=== PATIENT | male | born 2000 | race African-American/Black ===

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

== ENCOUNTER 2023-11-02 20:22 | Emergency (ER) | payer BC, OTHER | END 2023-11-02 21:00 | disposition home or self-care (01) | LOC: ERS 20:22 | DX: R51.9 Headache, unspecified (principal) | CPT/HCPCS: 99283 ==

== ENCOUNTER 2023-12-22 23:45 | Emergency (ER) | payer BC, SELFPAY | END 2023-12-23 01:12 | disposition left against medical advice (07) | LOC: ERS 23:45 | DX: Z53.21 Procedure and treatment not carried out due to patient leaving prior to being seen by health care provider (principal) ==